=== PATIENT | male | born 1955 | race Caucasian/White ===

== ENCOUNTER 2018-03-16 21:23 | Emergency (ER) | payer BC ==
--- NOTE | 2018-03-16 21:38 | EDM.PDOC ---
ED HPI GENERAL MEDICAL PROBLEM - General Chief Complaint: Laceration Stated Complaint: laceration Time Seen by Provider: 03/16/18 21:23 Source of Information: Reports: Patient ED ROS GENERAL - Review of Systems Review Of Systems: See Below Constitutional: Reports: No Symptoms. Denies: Fever, Chills, Weakness HEENT: Reports: No Symptoms. Denies: Throat Pain, Vision Change Respiratory: Reports: No Symptoms. Denies: Shortness of Breath Cardiovascular: Reports: No Symptoms. Denies: Chest Pain Endocrine: Reports: No Symptoms GI/Abdominal: Reports: No Symptoms. Denies: Constipation, Diarrhea, Vomiting : Reports: No Symptoms Musculoskeletal: Reports: Hand Pain. Denies: Neck Pain, Shoulder Pain, Arm Pain , Back Pain Skin: Reports: No Symptoms. Denies: Cyanosis, Jaundice, Mottled, Pallor, Diaphoresis Neurological: Reports: No Symptoms. Denies: Confusion, Dizziness, Seizure, Syncope, Difficulty Walking, Weakness Psychiatric: Reports: No Symptoms. Denies: Agitation, Anxiety, Confusion ED EXAM, SKIN/RASH Exam: See Below Exam Limited By: No Limitations General Appearance: Alert, WD/WN, No Apparent Distress Eye Exam: Bilateral Eye: EOMI, Normal Inspection, PERRL Ears: Normal External Exam, Hearing Grossly Normal Nose: Normal Inspection, No Blood Throat/Mouth: Normal Inspection, Normal Lips, Normal Voice, No Airway Compromise Head: Atraumatic, Normocephalic Neck: Normal Inspection, Full Range of Motion Respiratory/Chest: No Respiratory Distress, Lungs Clear, Normal Breath Sounds, No Accessory Muscle Use Cardiovascular: Regular Rate, Rhythm, No Murmur Back Exam: Full Range of Motion Extremities: Normal Range of Motion. No: Slow Capillary Refill Neurological: Alert, Oriented, Normal Cognition, No Motor/Sensory Deficits Psychiatric: Normal Affect, Normal Mood Skin: Warm, Dry, Intact (except CC), Normal Color, No Rash Location, Skin: Upper Extremity, Left (left volar index finger from mid middle phalanx obliquely across DIP joint there is a laceration that is bleeding freely. Distal CMS is intact and full finger strength/flexion against resistance.) ED SKIN PROCEDURES - Laceration/Wound Repair Left Ventral Digit - 2nd (Index) Lac/Wound length In cm: 3 Appearance: Subcutaneous, Irregular, Clean Distal NVT: Neuro & Vascular Intact, No Tendon Injury Anesthetic Type: Local Local Anesthesia - Lidocaine (Xylocaine): 1% Plain Local Anesthetic Volume: 4cc Skin Prep: Chlorhexidine (Hibiciens) (soak for 20 minutes) Exploration/Debridement/Repair: Wound Explored, In a Bloodless Field, Explored to Base Closed with: Sutures Suture Size: 4-0 # of Sutures: 8 Suture Type: Nylon, Interrupted, Simple Sterile Dressing Applied: Nurse Tetanus Status Addressed: Other (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 Sterile technique was used to repair and close finger laceration as described. Patient discharged to home in stable condition. Departure - Departure Time of Disposition: 22:08 Disposition: Home, Self-Care 01 Condition: Good Clinical Impression: Laceration of finger of left hand without foreign body without damage to nail Qualifiers: Encounter type: initial encounter Finger: index finger Qualified Code(s): S61.211A - Laceration without foreign body of left index finger without damage to nail, initial encounter - Discharge Information Instructions: Laceration Care, Adult Referrals: PCP,Unknown [Primary Care Provider] - Additional Instructions: 1. Keep wound clean and dry except for showering. Keep bandage on for 48 hours then remove, unless it gets wet then remove DICK. 2. Apply topical antibiotic and sterile bandage daily. 3. You can use the finger splint for support and protection as needed. 4. Follow up in clinic for suture removal in ten days. 5. Recheck sooner if any sign of infection as discussed.
[2018-03-16] MEDS: Bacitracin/Neomycin/Polymyxin B Oint 0.9 GM U/D Packet TOP ONE (22:15)
[2018-03-17] MEDS: Bacitracin/Neomycin/Polymyxin B Oint 0.9 GM U/D Packet ONE (05:08)
== END 2018-03-16 22:20 | disposition home or self-care (01) ==
LOC: KA.ED 21:23
DX: S61.211A Laceration without foreign body of left index finger without damage to nail, initial encounter (principal); W26.0XXA Contact with knife, initial encounter
CPT/HCPCS: 12002; 99283

== ENCOUNTER 2022-05-07 16:00 | Emergency (ER) | payer BC, MEDICARE | END 2022-05-07 17:45 | disposition home or self-care (01) | LOC: KA.ED 16:00 | DX: S22.42XA Multiple fractures of ribs, left side, initial encounter for closed fracture (principal); W11.XXXA Fall on and from ladder, initial encounter; Z79.899 Other long term (current) drug therapy | CPT/HCPCS: 71101-LT; 99283; 99284 ==

== ENCOUNTER 2023-03-15 20:49 | Emergency (ER) | payer MEDICARE, OTHER, BC | END 2023-03-15 22:31 | disposition home or self-care (01) | LOC: KA.ED 20:49 → SUPCPDRO 20:49 → KA.ED 22:31 | DX: H33.21 Serous retinal detachment, right eye (principal); Z79.899 Other long term (current) drug therapy | CPT/HCPCS: 99283 ==